=== PATIENT | male | born 1950 | race Caucasian/White ===

== ENCOUNTER 2017-11-11 07:44 | Day surgery (SDC) ==
[2017-11-11] MEDS: TETRACAINE 0.5% UNIT-DOSE OP PRN ×2 (08:25→09:04)
[2017-11-11] MEDS: BETADINE OPTH PREP OP PRN ×2 (08:25→09:05)
[2017-11-11] MEDS: CYCLOGYL 2% OPTH OP PRN ×3 (08:25→08:35)
[2017-11-11] MEDS ORDERED: DEX-MOXI-KETOR OPTH INJ 1/0.5/0.4 MG/ML IO ONE (08:35)
[2017-11-11] MEDS ORDERED: BSS WITH EPINEPHRINE OP ONE (08:35)
[2017-11-11] MEDS ORDERED: LIDOCAINE 1%/PHENYLEPHRINE 1.5% BSS (SURGERY) INTRAOCULA ONE (08:35)
[2017-11-11] MEDS ORDERED: LIDOCAINE 1% 20 ML MDV ID STA (08:35)
[2017-11-11] MEDS ORDERED: BRIMONIDINE TARTRATE 0.2% OPTH SOL OP PRN (08:35)
[2017-11-11] MEDS ORDERED: ZOFRAN 4 MG/2 ML IVP ONE (08:35)
[2017-11-11] MEDS ORDERED: SUBLIMAZE ONE (09:00)
[2017-11-11] MEDS ORDERED: VERSED ONE (09:00)
[2017-11-11 10:17] VITALS: BP 132/65
[2017-11-11 10:57] VITALS: TEMP 98
[2017-11-11] MEDS ORDERED: MIOCHOL-E INTRAOCULA ONE (11:33)
== END 2017-11-11 09:45 | disposition home or self-care (01) ==
LOC: SURG 07:44
PROVIDERS: ATTEND Ophthalmology
DX: H25.11 Age-related nuclear cataract, right eye (principal)

== ENCOUNTER 2017-11-25 06:00 | Day surgery (SDC) ==
[2017-11-25] MEDS: BETADINE OPTH PREP OP PRN ×2 (06:41→07:24)
[2017-11-25] MEDS: TETRACAINE 0.5% UNIT-DOSE OP PRN ×2 (06:41→07:31)
[2017-11-25] MEDS ORDERED: BSS WITH EPINEPHRINE OP ONE (06:44)
[2017-11-25] MEDS ORDERED: BRIMONIDINE TARTRATE 0.2% OPTH SOL OP PRN (06:44)
[2017-11-25] MEDS ORDERED: LIDOCAINE 1% 20 ML MDV ID STA (06:44)
[2017-11-25] MEDS ORDERED: ZOFRAN 4 MG/2 ML IVP ONE (06:44)
[2017-11-25] MEDS ORDERED: LIDOCAINE 1%/PHENYLEPHRINE 1.5% BSS (SURGERY) INTRAOCULA ONE (06:44)
[2017-11-25] MEDS ORDERED: DEX-MOXI-KETOR OPTH INJ 1/0.5/0.4 MG/ML IO ONE (06:44)
[2017-11-25] MEDS: CYCLOGYL 2% OPTH OP PRN ×3 (06:45→06:55)
[2017-11-25 06:54] VITALS: TEMP 98
[2017-11-25] MEDS ORDERED: SUBLIMAZE ONE (07:27)
[2017-11-25] MEDS ORDERED: VERSED ONE (07:27)
[2017-11-25] MEDS ORDERED: DIPRIVAN 20 ML VIAL IVP ONE (07:27)
[2017-11-30 08:32] VITALS: BP 117/67
== END 2017-11-25 08:10 | disposition home or self-care (01) ==
LOC: SURG 06:00
PROVIDERS: ATTEND Ophthalmology
DX: H25.12 Age-related nuclear cataract, left eye (principal)